=== PATIENT | male | born 2000 | race Caucasian/White ===

== ENCOUNTER 2020-07-11 00:03 | Emergency (ER) | payer OTHER ==
[~2020-07-11] VITALS: Ht 173 cm; Wt 77.0 kg
--- NOTE | 2020-07-11 01:21 | ED Head Injury ---
General Chief Complaint: Head/Cervical Problems Stated Complaint: HIT IN HEAD Nursing Triage Note: Pt ambulatory into ER with complaint of headache after projector fell from shelf landing on right side of head. Pt denies loss of consciousness. Pt states that he does have a headache and initially had blurred vision and was dizzy. Pt walked in and to the bathroom with no abnormal gait. No bleeding noted. Source: patient Exam Limitations: no limitations History of Present Illness Date Seen by Provider: Jul 11, 2020 Time Seen by Provider: 01:06 Initial Comments This 19-year-old young man presents to the emergency room with head injury. A projector fell from where it was mounted when a dog disrupted the cords. The projector struck him on the right parietal region. He denies loss of consciousness but he did experience blurred vision and dizziness afterwards. He now feels tired and still complains of headache. Occurred: this evening Allergies and Home Medications Patient Home Medication List Home Medication List Reviewed: Yes Review of Systems Review of Systems Constitutional: no symptoms reported Eyes: No Symptoms Reported Ears, Nose, Mouth, Throat: no symptoms reported Respiratory: no symptoms reported Cardiovascular: no symptoms reported Gastrointestinal: no symptoms reported Genitourinary: no symptoms reported Musculoskeletal: no symptoms reported Skin: no symptoms reported Psychiatric/Neurological: See HPI Endocrine: No Symptoms Reported Hematologic/Lymphatic: No Symptoms Reported Past Sbaurti-Ddshls-Nwkphc Hx Past Med/Social Hx: Reviewed Nursing Past Med/Soc Hx Patient Social History Recent Infectious Disease Expo: No Recent Hopitalizations: No Seasonal Allergies Seasonal Allergies: No Past Medical History Surgeries: Yes Tonsillectomy Respiratory: No Cardiac: No Neurological: No Genitourinary: No Gastrointestinal: No Musculoskeletal: No Endocrine: No HEENT: No Cancer: No Psychosocial: No Integumentary: No Blood Disorders: No Adverse Reaction/Blood Tranf: No Physical Exam Vital Signs Vital Signs - First Documented 07/11/20 00:13 Temp 36.5 Pulse 92 Resp 16 B/P (MAP) 122/75 (91) Pulse Ox 99 O2 Delivery Room Air Capillary Refill : Less Than 3 Seconds Height, Weight, BMI Height: '" Weight: lbs. oz. kg; 25.00 BMI Method: General Appearance: WD/WN, no apparent distress HEENT: PERRL/EOMI, normal ENT inspection, other (Mild tenderness over the right parietal region with no evidence of injury on visual inspection or palpation.) Neck: non-tender, normal inspection Cardiovascular: regular rate, rhythm, no edema, no murmur Respiratory: lungs clear, normal breath sounds, no respiratory distress Extremities: normal inspection, no pedal edema Psychiatric: alert, oriented x 3 Crainal Nerves: normal hearing, normal speech, PERRL Coordination/Gait: normal finger to nose (Normal [id number]), normal gait Motor/Sensory: no motor deficit, no sensory deficit Skin: normal color, warm/dry Reyna Coma Score Best Eye Response: (4) Open Spontaneously Best Verbal Response: (5) Oriented Best Motor Response: (6) Obeys Commands Garland Total: 15 Progress/Results/Core Measures Results/Orders Vital Signs/I&O Blood Pressure Mean: 91 Progress Progress Note : Progress Note Patient experienced symptoms of concussion. We discussed concussion precautions and the need to discuss his concussion injury with the first aid trainer at the [facility]. Departure Impression Primary Impression: Concussion without loss of consciousness Qualified Codes: S06.0X0A - Concussion without loss of consciousness, initial encounter Disposition: HOME, SELF-CARE Condition: Stable Departure-Patient Inst. Decision time for Depature: 01:18 Referrals: NO,LOCAL PHYSICIAN (PCP/Family) Primary Care Physician Patient Instructions: Concussion in Adults Add. Discharge Instructions: Contact your first aid trainer tomorrow and follow your programs return to play protocol. Drink plenty of clear liquids to stay well-hydrated. You may take ibuprofen up to 600 mg every 6 hours and/or Tylenol (acetaminophen) up to 1000 mg every 6 hours as needed for pain. Stay home from school and practice tomorrow and observe cognitive rest. Do not engage in any activity that would predispose you to further head injury until 7 days after your concussion symptoms have resolved. If any activity causes worsening of concussion symptoms such as headache, dizziness, vision changes, irritability, nausea, etc., stop that activity and rest. Call with questions or concerns. Return to the emergency room if you have notable worsening of condition. All discharge instructions reviewed with patient and/or family. Voiced understa nding. Work/School Note: School/Childcare Release Date Seen in the Emergency Department: Jul 11, 2020 Time Dismissed from Emergency Department: 01:30 Return to School: Jul 12, 2020 Other Restrictions Listed Below: Follow [employer] [id number] concussion protocol. MAGALYS HOLLAND MD Jul 11, 2020 01:21
[2020-07-11 01:27] VITALS: BP 110/75
== END 2020-07-11 01:27 | disposition home or self-care (01) ==
LOC: ER 00:06
DX: S06.0X0A Concussion without loss of consciousness, initial encounter (principal); R40.2410 Glasgow coma scale score 13-15, unspecified time; W22.8XXA Striking against or struck by other objects, initial encounter
CPT/HCPCS: 99282